=== PATIENT | female | born 1995 | race Caucasian/White ===

== ENCOUNTER 2016-03-28 08:13 | Emergency (ER) | payer SELFPAY ==
[~2016-03-28] VITALS: Ht 162.6 cm; Wt 85.0 kg
[2016-03-28 08:15] VITALS: BP 144/85; PULSE 109; RESP 17; TEMP 98; O2SAT 98
[2016-03-28] MEDS ORDERED: SODIUM CHLORIDE 0.9% FLUSH 5 ML FLUSH IVF PRN (08:45)
--- NOTE | 2016-03-28 09:04 | PD ---
HPI Chief Complaint: Musculoskeletal Complaint Time Seen by Provider: 08:42 Travel History International Travel<30 days: No Contact w/Intl Traveler<30days: No Traveled to known affect area: No History of Present Illness HPI This is a 20-year-old female who presents to the emergency department with right upper quadrant for 3-4 days, constant, worse with movement and laying on her right side, painful when she takes a deep breath. Patient denies any fevers or chills. She has had some increasing urinary frequency. She denies any vaginal discharge. She denies any nausea, vomiting or diarrhea. [facility] Past Medical History Medical History: Denies Significant Hx ?: Not Social History Tobacco Use: No Allergies-Medications (Allergen,Severity, Reaction): Coded Allergies: No Known Allergies (Unverified , 03/28/16) Reported Meds & Prescriptions Reported Meds & Active Scripts Active No Active Prescriptions or Reported Medications Review of Systems Except as stated in HPI: all other systems reviewed are Neg Physical Exam Narrative GENERAL:Well appearing, no acute distress SKIN: Warm and dry. HEAD: Atraumatic. Normocephalic. EYES: Pupils equal and round. No injection or drainage. ENT: Moist mucous membranes NECK: Trachea midline. CARDIOVASCULAR: Regular rate and rhythm. No murmur appreciated. RESPIRATORY: Clear to auscultation. Breath sounds equal bilaterally. GASTROINTESTINAL: Abdomen soft, tender to palpation in the right upper quadrant with no rebound or guarding. [employer]: Scant vaginal discharge, clear, with no cervical motion or adnexal tenderness. MUSCULOSKELETAL: No obvious deformities. NEUROLOGICAL: Awake and alert. No obvious cranial nerve deficits. Moving all extremities. PSYCHIATRIC: Appropriate mood and affect; insight and judgment normal. Data Data Last Documented VS Vital Signs Date Time Temp Pulse Resp B/P Pulse Ox O2 Delivery O2 Flow Rate FiO2 03/28/16 12:44 92 18 121/69 99 Room Air 03/28/16 08:15 98.0 Orders Electrocardiogram (03/28/16 08:45) Complete Blood Count With Diff (03/28/16 08:45) Comprehensive Metabolic Panel (03/28/16 08:45) Lipase (03/28/16 08:45) Ecg Monitoring (03/28/16 08:45) Bilateral Bp Monitoring (03/28/16 08:45) Iv Access Insert/Monitor (03/28/16 08:45) Oximetry (03/28/16 08:45) Oxygen Administration (03/28/16 08:45) Sodium Chloride 0.9% Flush (Ns Flush) (03/28/16 08:45) Ed Poc Ultrasound (03/28/16 ) Ed Urine Pregnancytest Poc (03/28/16 08:45) Urinalysis - C+S If Indicated (03/28/16 08:45) Us Abdomen Gallbladder (03/28/16 ) Urine Culture (03/28/16 09:20) Wet Prep Profile (03/28/16 10:56) Gc And Chlamydia Pcr (03/28/16 10:56) Ct Pulmonary Angiogram (03/28/16 ) Ketorolac Inj (Toradol Inj) (03/28/16 13:15) Iohexol 350 Inj (Omnipaque 350 Inj) (03/28/16 13:55) Labs Laboratory Tests Test 03/28/16 03/28/16 09:20 10:50 White Blood Count 10.3 TH/MM3 Red Blood Count 4.59 MIL/MM3 Hemoglobin 13.6 GM/DL Hematocrit 39.6 % Mean Corpuscular Volume 86.2 FL Mean Corpuscular Hemoglobin 29.7 PG Mean Corpuscular Hemoglobin 34.5 % Concent Red Cell Distribution Width 12.8 % Platelet Count 336 TH/MM3 Mean Platelet Volume 7.3 FL Neutrophils (%) (Auto) 81.1 % Lymphocytes (%) (Auto) 12.8 % Monocytes (%) (Auto) 5.1 % Eosinophils (%) (Auto) 0.9 % Basophils (%) (Auto) 0.1 % Neutrophils # (Auto) 8.3 TH/MM3 Lymphocytes # (Auto) 1.3 TH/MM3 Monocytes # (Auto) 0.5 TH/MM3 Eosinophils # (Auto) 0.1 TH/MM3 Basophils # (Auto) 0.0 TH/MM3 CBC Comment DIFF FINAL Differential Comment Urine Color YELLOW Urine Turbidity HAZY Urine pH 7.5 Urine Specific [place] 1.017 Urine Protein NEG mg/dL Urine Glucose (UA) NEG mg/dL Urine Ketones NEG mg/dL Urine Occult Blood NEG Urine Nitrite NEG Urine Bilirubin NEG Urine Urobilinogen LESS THAN 2.0 MG/DL Urine Leukocyte Esterase SMALL Urine RBC 3 /hpf Urine WBC 9 /hpf Urine Squamous Epithelial 9 /hpf Cells Urine Bacteria FEW /hpf Microscopic Urinalysis Comment CULTURE INDICATED Sodium Level 138 MEQ/L Potassium Level 4.4 MEQ/L Chloride Level 106 MEQ/L Carbon Dioxide Level 25.2 MEQ/L Anion Gap 7 MEQ/L Blood Urea Nitrogen 11 MG/DL Creatinine 0.81 MG/DL Estimat Glomerular Filtration 88 ML/MIN Rate Random Glucose 94 MG/DL Calcium Level 8.6 MG/DL Total Bilirubin 0.3 MG/DL Aspartate Amino Transf 18 U/L (AST/SGOT) Alanine Aminotransferase 29 U/L (ALT/SGPT) Alkaline Phosphatase 56 U/L Total Protein 7.6 GM/DL Albumin 3.6 GM/DL Lipase 135 U/L Clue Cells (Wet Prep) PRESENT Vaginal Trichomonas (Wet Prep) NONE SEEN Vaginal Yeast (Wet Prep) NONE SEEN Chlamydia trachomatis DNA DETECTED (PCR) Neisseria gonorrhoeae DNA NOT DETECTED (PCR) MDM Medical Decision Making Medical Screen Exam Complete: Yes Emergency Medical Condition: Yes Interpretation(s) Afebrile, tachycardic, hypertensive No leukocytosis Electrolytes are reassuring Lipase is normal Urinalysis demonstrates some white blood cells Wet prep has some clue cells the patient is asymptomatic Chlamydia positive Differential Diagnosis Cholecystitis, cholelithiasis, pneumonia, pulmonary embolism, PID Narrative Course This is a 20-year-old female who presents to the emergency department with right upper quadrant abdominal pain which is pleuritic in nature. She is placed on a monitor and an IV was established. Ultrasound of the right upper quadrant was obtained which demonstrates some sludge in the gallbladder. Given her persistent symptoms of CT pulmonary angiogram was obtained which was negative for central PE but doesn't well visualize distal PEs. In the meantime her chlamydia came back positive. I think Cyrus Chapo Cole is a reasonable explanation for the patient's symptoms. I don't think she requires any additional imaging for pulmonary embolism. Patient will be discharged with antibiotics. 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 Your pelvic exam today did not include a Pap smear. It is important to followup with a cna per diem on a yearly basis to be tested for cervical cancer as we do not do that from the emergency department. If there is a concern that you have sexually transmitted disease, your partner should be tested. You should followup with your cna per diem or with the health department to get tested for other sexually transmitted diseases like HIV and syphilis, as we do not test for these in the emergency department Med/Other Pt SpecificInfo: Prescription(s) given Scripts Doxycycline Hyclate 100 Mg Tig665 Mg PO BID #28 CAP Ref 0 Prov:Tammie Toribio MD 03/28/16 Disposition: 01 DISCHARGE HOME Condition: Stable Tammie Toribio MD Mar 28, 2016 09:04
[2016-03-28 09:35] VITALS: BP 133/74; PULSE 90; RESP 18; O2SAT 98
[2016-03-28 09:44] LABS: AUTOMATED NEUTROPHIL # 8.3 TH/MM3 (1.8-7.7); BASOPHIL % 0.1 % (0.0-2.0); EOSINOPHIL # 0.1 TH/MM3 (0-0.4); EOSINOPHIL % 0.9 % (0.0-4.0); HEMATOCRIT 39.6 % (35.0-46.0); HEMO FLAGS DIFF FINAL; LYMPH % 12.8 % (9.0-44.0); LYMPHOCYTE # 1.3 TH/MM3 (1.0-4.8); MEAN CELL VOLUME 86.2 FL (80.0-100.0); MEAN CORPUSCULAR HEMOGLOBIN 29.7 PG (27.0-34.0); MEAN CORPUSCULAR HGB CONC 34.5 % (32.0-36.0); MONO % 5.1 % (0.0-8.0); NEUT % 81.1 % (16.0-70.0); PLATELET COUNT 336 TH/MM3 (150-450); RED BLOOD COUNT 4.59 MIL/MM3 (4.00-5.30); RED CELL DISTRIBUTION WIDTH 12.8 % (11.6-17.2); WHITE BLOOD COUNT 10.3 TH/MM3 (4.0-11.0)
[2016-03-28 09:51] LABS: BACTERIA, URINE FEW /hpf; BLOOD, URINE NEG (NEG); COMMENT (UR) CULTURE INDICATED; CULTURE IF INDICATED CULTURE INDICATED; GLUCOSE,URINE NEG (NEG); KETONE, URINE NEG (NEG); NITRITE,URINE NEG (NEG); PH, URINE 7.5 (5.0-8.5); SQUAMOUS EPITHELIAL CELL URINE 9 /hpf (0-5); URINE COLOR YELLOW (YELLW/STRAW)
[2016-03-28 10:00] LABS: ANION GAP 7 MEQ/L (5-15); AST (GOT) 18 U/L (15-37); BICARBONATE 25.2 MEQ/L (21.0-32.0); BLOOD UREA NITROGEN 11 MG/DL (7-18); CHLORIDE 106 MEQ/L (98-107); GLOMERULAR FILTRATION RATE 88 ML/MIN (>89); POTASSIUM 4.4 MEQ/L (3.5-5.1); SODIUM (NA) 138 MEQ/L (136-145)
[2016-03-28 10:08] LABS: ALKALINE PHOSPHATASE 56 U/L (45-117); ALT (GPT) 29 U/L (10-53); TOTAL BILIRUBIN ADULT 0.3 MG/DL (0.2-1.0)
[2016-03-28 10:23] VITALS: BP_SYST 131; BP_SYST 133; BP_DIAS 68; BP_DIAS 74; PULSE 92; RESP 18; O2SAT 97
--- NOTE | 2016-03-28 10:36 | RADRPT ---
EXAM DATE/TIME: 03/28/2016 09:44 [facility] COMPARISON: No previous studies available for comparison. INDICATIONS : Right abdomen pain. MEDICAL HISTORY : Right abdominal pain. SURGICAL HISTORY : None. ENCOUNTER: Initial ACUITY: 4-6 days PAIN SCORE: 6/10 LOCATION: Right abdomen. MEASUREMENTS: LIVER: 15.6 cm length COMMON DUCT: 4 mm RIGHT KIDNEY: 10.9 x 4.3 x 5.3 cm FINDINGS: LIVER: Normal echotexture without focal lesion or ductal dilatation. There is trace fluid in the region of Morison's pouch. COMMON DUCT: No intraluminal mass or stone visualized. GALLBLADDER: Contains no stones, demonstrates no wall thickening or pericholecystic fluid. There is mobile sludge . Sonographic Ngo sign is negative. PANCREAS: The visualized portions are within normal limits. RIGHT KIDNEY: No evidence of hydronephrosis, stone, or mass. CONCLUSION: 1. Mild gallbladder sludge but no other acute gallbladder abnormality is identified. There are no fin dings to suggest acute gallbladder inflammation. 2. There is trace fluid in the region of Morison's pouch. Mendel Genao MD on March 28, 2016 at 10:33 Board Certified Radiologist. This report was verified electronically.
[2016-03-28 12:44] VITALS: BP 121/69; PULSE 92; RESP 18; O2SAT 99
[2016-03-28] MEDS ORDERED: KETOROLAC TROMETHAMINE 30 MG/ML (IVP) VIAL IV PUSH ONE (13:15)
[2016-03-28 13:53] LABS: CHLAMYDIA PCR DETECTED (NOT DETECT); NEISSERIA PCR NOT DETECTED (NOT DETECT)
[2016-03-28] MEDS ORDERED: IOHEXOL 350 MG/ML 10 ML VIAL (for RAD DIAG) IV ONE (13:55)
--- NOTE | 2016-03-28 14:22 | RADRPT ---
EXAM DATE/TIME: 03/28/2016 13:37 [facility] COMPARISON: No previous studies available for comparison. INDICATIONS : Evaluate for embolism; right rib pain for four days. IV CONTRAST: 59 cc Omnipaque 350 (iohexol) IV RADIATION DOSE: 13.7 CTDIvol (mGy) MEDICAL HISTORY : None SURGICAL HISTORY : None. ENCOUNTER: Initial ACUITY: 1 day PAIN SCALE: 6/10 LOCATION: Right chest TECHNIQUE: Volumetric scanning of the chest was performed using a pulmonary embolism protocol MIP images were re constructed. Using automated exposure control and adjustment of the mA and/or kV according to patien t size, radiation dose was kept as low as reasonably achievable to obtain optimal diagnostic quality images. FINDINGS: PULMONARY ARTERIES: Examination is nearly nondiagnostic for PE given poor contrast bolus in the right heart and pulmonary arteries. There appears to have interruption of the contrast bolus. No central PE is identified but PE in the lobar or more distal branches cannot be excluded LUNGS: There is no consolidation or pneumothorax . No concerning pulmonary nodule is visualized. There is d ependent atelectasis. PLEURAE: There is no pleural thickening or pleural effusion. MEDIASTINUM: Heart and great vessels demonstrate no acute finding. There is soft tissue density anterior mediastin um is nonspecific but could represent residual thymic tissue. No lymphadenopathy is seen. MUSCULOSKELETAL: Within normal limits for patient age. MISCELLANEOUS: The visualized upper abdominal organs demonstrate no acute abnormality. CONCLUSION: 1. Examination is nearly nondiagnostic for PE due to poor opacification of the pulmonary arteries. I do not see any central located PE but PE in the lobar branches or more distally cannot be excluded ba sed on this examination. We could consider repeating the examination or if there is high clinical con cern for PE consider VQ scan. 2. Soft tissue in the anterior mediastinum is nonspecific but may represent residual thymic tissue. Mendel Genao MD on March 28, 2016 at 14:17 Board Certified Radiologist. This report was verified electronically.
[2016-03-28] MEDS ORDERED: DOXY100C PO (14:43)
[2016-03-28] MEDS ORDERED: cefTRIAXone INJ 1,000 MG in SODIUM CHLORIDE 0.9% INJ 100 ML IV ONE (14:45)
[2016-03-28] MEDS ORDERED: NAPR500T PO (16:20)
[2016-03-28] MEDS ORDERED: TRAM50TA PO (16:20)
[2016-03-28 16:41] VITALS: BP 127/64
--- NOTE | 2016-03-28 23:02 | EKG ---
Date Performed: 03/28/2016 Time Performed: 10:20:31 PTAGE: 20 years EKG: Sinus rhythm NORMAL ECG NO PREVIOUS TRACING DOCTOR: Leighton Hernandez Interpretating Date/Time 03/28/2016 23:01:34
== END 2016-03-28 16:42 | disposition home or self-care (01) ==
LOC: NEPE 08:13
DX: A74.81 Chlamydial peritonitis (principal); R07.81 Pleurodynia
CPT/HCPCS: 71275; 76705; 80053; 81001; 83690; 84703; 85025; 87086; 87210; 87491; 87591; 93005; 96374; 96375; 99284; J0696; J1885; Q9967